=== PATIENT | female | born 1995 | race Caucasian/White ===

== ENCOUNTER 2020-01-25 13:52 | Emergency (ER) | payer OTHER, BC, SELFPAY ==
[2020-01-25 14:04] VITALS: BP 143/89; PULSE 97; RESP 20; TEMP 37.7; O2SAT 100
--- NOTE | 2020-01-25 14:16 | ED.NAVMDI ---
HPI - Nausea/Vomiting/Diarrhea General Chief complaint: Nausea/Vomiting/Diarrhea Stated complaint: diarrhea Time Seen by Provider: 01/25/20 14:06 Source: patient and RN notes reviewed Mode of arrival: ambulatory Limitations: no limitations History of Present Illness HPI Narrative: Patient presents today with a one-month history of diarrhea. Diarrhea began 1 month ago when she returned from [place]. She was having very loose stools at least 3 times daily for the past month, but over the past 2 to 3 days, her stools have turned to water. She reports some lower abdominal cramping when she is passing stool, but no other abdominal pains. No fever, nausea, vomiting. No blood or mucus in the stool. States she is drinking and staying hydrated. Denies feeling dehydrated. MD elicited complaint: diarrhea Related Data Home Medications Medication Instructions Recorded Confirmed cholecalciferol (vitamin D3) 1 unit DAILY 01/25/20 01/25/20 drospirenone-ethinyl estradiol 1 tablet DAILY 01/25/20 01/25/20 [Johnna (28)] Allergies Allergy/AdvReac Type Severity Reaction Status Date / Time No Known Allergies Allergy Verified 01/25/20 13:54 Review of Systems Review of Systems: Narrative: CONSTITUTIONAL: Denies body aches, fever, chills, or sweats. EYES: Denies visual changes, redness, or discharge. ENT: Denies rhinorrhea, congestion, sore throat, or otalgia. CARDIOVASCULAR: Denies chest pain, palpitations, or edema. RESPIRATORY: Denies cough or dyspnea. GASTROINTESTINAL: Denies abdominal pain, nausea, vomiting. + Diarrhea GENITOURINARY: Denies dysuria or hematuria. SKIN: Denies rash, itching, or wounds. MUSCULOSKELETAL: Denies back pain, joint pain, or myalgia. NEUROLOGIC: Denies headache, numbness, tingling, or weakness. PSYCH: Denies depression or anxiety. [facility] Family History Family History (Updated 12/25/16 @ 09:31 by DOCTOR UNKNOWN) Grandparent Family history of cardiovascular disease Family history of dementia Social History Social History Smoking status: Never smoker Alcohol intake: current Gender identity (if verbalized by the patient): Female Comments At time of signature, I have reviewed and agree with nursing past medical, surgical, social and family history unless otherwise noted. Please see nursing chart for further information. There is no relevant family history pertinent to the presenting complaint Exam Narrative: Exam Narrative: GENERAL: Well-appearing, well-nourished, and in no acute distress. HEAD: Normocephalic, atraumatic. EYES: EOMI. No redness or drainage. Conjunctivae normal. ENT: Mucous membranes pink and moist. Uvula midline. NECK: Normal AROM. Supple. No lymphadenopathy. CHEST: No respiratory distress. Clear to auscultation. HEART: Regular rate and rhythm. No murmur appreciated. Normal peripheral pulses. ABDOMEN: Soft, nontender, nondistended, normal active bowel sounds. MUSCULOSKELETAL: No bony tenderness. EXTREMITIES: Normal range of motion. No edema. SKIN: Warm, dry, no rash. Capillary refill normal. Normal skin turgor. NEURO: No focal deficits. Alert and oriented x3. Gait steady. PSYCH: Normal affect. No signs of depression or anxiety. Course Vital Signs Vital signs: Vital Signs Temperature 99.9 F H 01/25/20 14:04 Pulse Rate 97 01/25/20 14:04 Respiratory Rate 20 01/25/20 14:04 Blood Pressure 143/89 H 01/25/20 14:04 Pulse Oximetry 100 01/25/20 14:04 Temperature 99.9 F H 01/25/20 14:04 Pulse Rate 97 01/25/20 14:04 Respiratory Rate 20 01/25/20 14:04 Blood Pressure 143/89 H 01/25/20 14:04 Pulse Oximetry 100 01/25/20 14:04 Reviewed. Pt has been instructed to follow up with her PCP regarding her elevated blood pressure today. MDM - Nausea/Vomiting/Diarrhea Differential Diagnosis Differential diagnosis: Likely traveler's diarrhea, gastroenteritis, clostridium difficile infection and dehydration Critical Care Time Critical Car
== END 2020-01-25 14:22 | disposition home or self-care (01) ==
PROVIDERS: Emergency Provider Nurse Practitioner
DX: A09 Infectious gastroenteritis and colitis, unspecified (principal)
CPT/HCPCS: 99213; G0463